=== PATIENT | female | born 1985 | race Caucasian/White ===

== ENCOUNTER 2016-10-09 11:24 | Emergency (ER) | payer BC ==
[2016-10-09] MEDS ORDERED: Dexamethasone 4 mg/ml Vial ONE (11:50)
--- NOTE | 2016-10-09 15:59 | RAD ---
The soft tissues are normal in thickness. The epiglottis appears normal and the airway is patent. No foreign bodies were seen. IMPRESSION: No significant finding. POS: HOME
== END 2016-10-09 12:24 | disposition home or self-care (01) ==
LOC: BURERS 11:24
DX: M62.838 Other muscle spasm (principal); F32.9 Major depressive disorder, single episode, unspecified; F41.9 Anxiety disorder, unspecified
CPT/HCPCS: 70360; J1100

== ENCOUNTER 2018-03-31 21:46 | Emergency (ER) | payer BC ==
[2018-03-31] MEDS ORDERED: Pantoprazole 40 MG VIAL ONE (22:28)
[2018-03-31] MEDS ORDERED: Ondansetron HCl/PF 4 MG/2 ML Vial ONE (22:28)
[2018-03-31 22:30] LABS: ALT (SGPT) 19 U/L (8-55); AST (SGOT) 13 U/L (5-34); Albumin 4.3 g/dL (3.5-5.0); Alkaline Phosphatase 43 U/L (40-150); Anion Gap 13 mmol/L (10-20); BUN (Urea Nitrogen) 13 mg/dL (7.0-18.7); Bilirubin, Total 0.6 mg/dL (0.2-1.2); Calc. Creatinine Clearance 0 mL/min (70-130); Calcium 9.4 mg/dL (7.8-10.44); Carbon Dioxide 26 mmol/L (22-29); Chloride 107 mmol/L (98-107); Estimated GFR-MDRD 78; Globulin 2.9 g/dL (2.4-3.5); Glucose 89 mg/dL (70-105); Potassium 3.9 mmol/L (3.5-5.1); Protein, Total 7.2 g/dL (6.0-8.3); Sodium 142 mmol/L (136-145)
[2018-03-31 22:32] LABS: CKMB 0.6 ng/mL (0-6.6); Troponin I Less than 0.010 ng/mL (< 0.028)
[2018-03-31 22:34] LABS: Hemoglobin 13.3 g/dL (12.0-16.0); Mean Corpuscular Hemoglobin 28.5 pg (27.0-31.0); Mean Corpuscular Volume 77.4 fL (78.0-98.0); Red Blood Cell (RBC) Count 4.67 mill/uL (4.20-5.40); White Blood Cell (WBC) Count 8.5 thou/uL (4.8-10.8)
[2018-03-31 22:39] LABS: Manual Diff?? YES; Mean Platelet Volume 6.8 fL (7.4-10.4); Platelet Count 224 thou/uL (130-400); RBC Distribution Width 11.5 % (11.5-14.5)
[2018-03-31 22:40] LABS: Lymphocytes 30 % (21-51); MDiff Complete? YES; Monocytes 10 % (0-10); Neutrophil 59 % (42-75)
[2018-03-31 22:41] LABS: PLT Morphology Comment Appears Adequate; RBC Morphology Normal
[2018-03-31 22:43] LABS: Mean Corpuscular HGB CONC 36.9 g/dL (32.0-36.0)
[2018-03-31 22:51] LABS: Bilirubin Negative (Negative); Blood, Urine Moderate (Negative); Clarity Cloudy (Clear); Glucose, Urine (Dipstick) Negative (Negative); Leukocyte Moderate (Negative); Nitrite Positive (Negative); Protein, Urine (Dipstick) 100 mg/dL (Neg-Trace)
[2018-03-31] MEDS ORDERED: Prochlorperazine 10 MG/2 ML VIAL ONE (22:53)
[2018-03-31 22:59] LABS: Bacteria/HPF 2+ HPF (None Seen); Other Microscopic Description FEW CLUE CELLS; Squamous Epithelial 0-3 HPF (0-3)
--- NOTE | 2018-03-31 23:15 | RAD ---
PORTABLE CHEST 03/31/18 An AP portable film at 2147 is compared with an 04/12/12 study. The heart is normal in size and the lungs are clear. No infiltrate or effusion was seen. There is no vascular congestion or edema. The mediastinum appears normal. IMPRESSION: No acute thoracic findings. POS: HOME
[2018-03-31] MEDS ORDERED: Sulfameth/Trimethoprim DS 800-160mg TAB ONE (23:20)
== END 2018-03-31 23:22 | disposition home or self-care (01) ==
LOC: BURERS 21:46
DX: R07.9 Chest pain, unspecified (principal); N39.0 Urinary tract infection, site not specified; F32.9 Major depressive disorder, single episode, unspecified; F41.9 Anxiety disorder, unspecified; Z79.899 Other long term (current) drug therapy
CPT/HCPCS: 71045; 80053; 81003; 81015; 82553; 83880; 84484; 85025; 85379; 87077; 87086; 87186; 93005; 96374; 96375; C9113; J0780; J2405

== ENCOUNTER 2018-05-09 13:38 | Emergency (ER) | payer BC, SELFPAY ==
[2018-05-09] MEDS ORDERED: HYDROcodone/Acetaminophen 5/325 mg Tablet ONE (13:51)
[2018-05-09] MEDS ORDERED: hydrOXYzine 25 MG TAB ONE (13:52)
[2018-05-09] MEDS ORDERED: Famotidine 20 MG TAB ONE (13:52)
== END 2018-05-09 15:49 | disposition home or self-care (01) ==
LOC: BURERS 13:38
DX: S91.155A Open bite of left lesser toe(s) without damage to nail, initial encounter (principal); F41.9 Anxiety disorder, unspecified; F32.9 Major depressive disorder, single episode, unspecified; W59.11XA Bitten by nonvenomous snake, initial encounter
CPT/HCPCS: 99283

== ENCOUNTER 2018-12-15 23:41 | Emergency (ER) | payer BC, SELFPAY ==
[2018-12-16 00:29] LABS: #Basophils 0.1 thou/uL (0.0-0.2); #Eosinphils 0.1 thou/uL (0.0-0.7); #Lymphocytes 2.4 thou/uL (1.20-3.40); #Monocytes 0.5 thou/uL (0.11-0.59); #Neutrophils 2.7 thou/uL (1.40-6.50); %Basophils 1.4 % (0.0-1.0); %Eosinophils 2.1 % (0.0-10.0); %Neutrophils 46.5 % (42.0-75.0); Hemoglobin 13.2 g/dL (12.0-16.0); Mean Corpuscular Volume 84.8 fL (78.0-98.0); Mean Platelet Volume 7.1 fL (7.4-10.4); Platelet Count 215 thou/uL (130-400); RBC Distribution Width 12.3 % (11.5-14.5); Red Blood Cell (RBC) Count 4.71 mill/uL (4.20-5.40); White Blood Cell (WBC) Count 5.7 thou/uL (4.8-10.8)
[2018-12-16 00:39] LABS: ALT (SGPT) 11 U/L (8-55); AST (SGOT) 15 U/L (5-34); Alkaline Phosphatase 41 U/L (40-150); Anion Gap 15 mmol/L (10-20); BUN (Urea Nitrogen) 18 mg/dL (7.0-18.7); Bilirubin, Total 0.5 mg/dL (0.2-1.2); Calc. Creatinine Clearance 0 mL/min (70-130); Calcium 9.4 mg/dL (7.8-10.44); Carbon Dioxide 21 mmol/L (22-29); Chloride 108 mmol/L (98-107); Estimated GFR-MDRD 74; Globulin 3.1 g/dL (2.4-3.5); Glucose 99 mg/dL (70-105); Potassium 3.7 mmol/L (3.5-5.1); Protein, Total 7.1 g/dL (6.0-8.3); Sodium 140 mmol/L (136-145)
[2018-12-16] MEDS ORDERED: predniSONE 20 MG TAB ONE (01:57)
== END 2018-12-16 02:10 | disposition home or self-care (01) ==
LOC: BURERS 23:41
DX: L23.9 Allergic contact dermatitis, unspecified cause (principal); M79.89 Other specified soft tissue disorders; F41.9 Anxiety disorder, unspecified; F32.9 Major depressive disorder, single episode, unspecified; Z79.899 Other long term (current) drug therapy
CPT/HCPCS: 80053; 85025; 99283; J7512

== ENCOUNTER 2019-01-23 06:26 | Emergency (ER) | payer BC ==
[2019-01-23 07:27] LABS: #Eosinphils 0.2 thou/uL (0.0-0.7); #Lymphocytes 2.6 thou/uL (1.20-3.40); #Monocytes 0.5 thou/uL (0.11-0.59); #Neutrophils 3.2 thou/uL (1.40-6.50); %Basophils 0.6 % (0.0-1.0); %Eosinophils 2.5 % (0.0-10.0); %Lymphocytes 40.1 % (21.0-51.0); %Monocytes 7.1 % (0.0-10.0); %Neutrophils 49.8 % (42.0-75.0); Hemoglobin 13.6 g/dL (12.0-16.0); Mean Corpuscular HGB CONC 31.3 g/dL (32.0-36.0); Mean Corpuscular Hemoglobin 27.3 pg (27.0-31.0); Mean Corpuscular Volume 87.2 fL (78.0-98.0); Mean Platelet Volume 7.4 fL (7.4-10.4); Platelet Count 232 thou/uL (130-400); RBC Distribution Width 12.8 % (11.5-14.5); Red Blood Cell (RBC) Count 4.97 mill/uL (4.20-5.40); White Blood Cell (WBC) Count 6.4 thou/uL (4.8-10.8)
[2019-01-23 07:46] LABS: CK (CPK) 119 U/L (29-168); Lipase 27 U/L (8-78)
[2019-01-23 07:46] LABS: Bilirubin Negative (Negative); Blood, Urine Negative (Negative); Clarity Clear (Clear); Glucose, Urine (Dipstick) Negative (Negative); Leukocyte Trace (Negative); Nitrite Negative (Negative); Protein, Urine (Dipstick) Negative (Neg-Trace); Specific Gravity, Urine 1.025 (1.005-1.030); Urobilinogen 0.2 mg/dL (0.2-1.0); pH, Urine 6.5 (5.0-9.0)
[2019-01-23 07:48] LABS: ALT (SGPT) 12 U/L (8-55); AST (SGOT) 15 U/L (5-34); Albumin 4.2 g/dL (3.5-5.0); Alkaline Phosphatase 49 U/L (40-150); Anion Gap 13 mmol/L (10-20); BUN (Urea Nitrogen) 19 mg/dL (7.0-18.7); Bilirubin, Total 0.4 mg/dL (0.2-1.2); Calc. Creatinine Clearance 0 mL/min (70-130); Calcium 9.6 mg/dL (7.8-10.44); Carbon Dioxide 28 mmol/L (22-29); Chloride 104 mmol/L (98-107); Estimated GFR-MDRD 79; Glucose 98 mg/dL (70-105); Potassium 3.7 mmol/L (3.5-5.1); Protein, Total 7.2 g/dL (6.0-8.3); Sodium 141 mmol/L (136-145)
[2019-01-23 07:54] LABS: Amphetamine Detected (NotDetected); Barbiturates Screen Not Detected (NotDetected); Benzodiazepine Screen Detected (NotDetected); Cocaine Metabolite Screen Not Detected (NotDetected); Medtox Control Line Valid? VALID (VALID); Methadone Not Detected (NotDetected); Methamphetamine Not Detected (NotDetected); Opiate Screen Not Detected (NotDetected); Oxycodone Screen Not Detected (NotDetected); Phencyclidine (PCP) Not Detected (NotDetected); THC/Cannabinoid Screen Not Detected (NotDetected); Tricyclic Screen Not Detected (NotDetected)
[2019-01-23] MEDS ORDERED: Ketorolac Tromethamine 30 MG/ML VIAL ONE (07:54)
[2019-01-23 08:00] LABS: Bacteria/HPF Rare-Few HPF (None Seen); RBC/HPF None Seen HPF (0-3); Squamous Epithelial 0-3 HPF (0-3); WBC/HPF 0-3 HPF (0-3)
[2019-01-23] MEDS ORDERED: Lorazepam 0.5 MG TAB ONE (08:32)
== END 2019-01-23 08:43 | disposition home or self-care (01) ==
LOC: BURERS 06:26
DX: T67.5XXA Heat exhaustion, unspecified, initial encounter (principal); F41.9 Anxiety disorder, unspecified; F32.9 Major depressive disorder, single episode, unspecified; F90.9 Attention-deficit hyperactivity disorder, unspecified type; Z79.899 Other long term (current) drug therapy
CPT/HCPCS: 80053; 80306; 81015; 82550; 83690; 84443; 85025; 85652; 93005; 96361; 96374; J1885

== ENCOUNTER 2019-05-30 10:13 | Emergency (ER) | payer BC ==
[2019-05-30] MEDS ORDERED: Midazolam HCl 2 mg/2 ml Vial ONE (10:38)
[2019-05-30] MEDS ORDERED: Morphine 10 MG/ML VIAL ONE (10:40)
[2019-05-30 10:49] LABS: #Eosinphils 0.1 thou/uL (0.0-0.7); #Monocytes 0.5 thou/uL (0.11-0.59); #Neutrophils 5.8 thou/uL (1.40-6.50); %Basophils 0.4 % (0.0-1.0); %Eosinophils 1.4 % (0.0-10.0); %Lymphocytes 23.9 % (21.0-51.0); %Monocytes 5.8 % (0.0-10.0); %Neutrophils 68.5 % (42.0-75.0); Mean Corpuscular HGB CONC 33.9 g/dL (32.0-36.0); Mean Corpuscular Hemoglobin 28.8 pg (27.0-31.0); Mean Corpuscular Volume 84.7 fL (78.0-98.0); Mean Platelet Volume 6.4 fL (7.4-10.4); Platelet Count 262 thou/uL (130-400); RBC Distribution Width 11.8 % (11.5-14.5); Red Blood Cell (RBC) Count 4.53 mill/uL (4.20-5.40); White Blood Cell (WBC) Count 8.4 thou/uL (4.8-10.8)
[2019-05-30] MEDS ORDERED: Fentanyl 100 MCG/2 ML VIAL ONE (10:52)
[2019-05-30 11:05] LABS: ALT (SGPT) 9 U/L (8-55); AST (SGOT) 10 U/L (5-34); Albumin 4.1 g/dL (3.5-5.0); Alkaline Phosphatase 52 U/L (40-110); Anion Gap 16 mmol/L (10-20); BUN (Urea Nitrogen) 15 mg/dL (7.0-18.7); Bilirubin, Total 0.8 mg/dL (0.2-1.2); Calc. Creatinine Clearance 0 mL/min (70-130); Calcium 9.8 mg/dL (7.8-10.44); Carbon Dioxide 25 mmol/L (22-29); Chloride 103 mmol/L (98-107); Estimated GFR-MDRD 83; Globulin 3.6 g/dL (2.4-3.5); Glucose 88 mg/dL (70-105); Potassium 3.5 mmol/L (3.5-5.1); Protein, Total 7.7 g/dL (6.0-8.3); Sodium 140 mmol/L (136-145)
== END 2019-05-30 12:19 | disposition home or self-care (01) ==
LOC: BURERS 10:13
DX: L02.416 Cutaneous abscess of left lower limb (principal); F41.9 Anxiety disorder, unspecified; F32.9 Major depressive disorder, single episode, unspecified; F90.9 Attention-deficit hyperactivity disorder, unspecified type; Z79.899 Other long term (current) drug therapy
CPT/HCPCS: 10060; 80053; 83605; 85025; 86140; 96374; 96375; J2250; J2270; J3010

== ENCOUNTER 2021-02-13 22:29 | Emergency (ER) | payer BC ==
[2021-02-13] MEDS ORDERED: Clindamycin 150 MG CAP ONE (23:04)
[2021-02-13] MEDS ORDERED: Ketorolac Tromethamine 60 MG/2 ML VIAL ONE (23:04)
[2021-02-13] MEDS ORDERED: Acetaminophen/Codeine 30-300mg Tablet ONE (23:04)
[2021-02-13] MEDS ORDERED: Lidocaine 1% PF 5 ML VIAL ONE (23:04)
[2021-02-13] MEDS ORDERED: Bacitracin 1 PK ONE (23:39)
== END 2021-02-13 23:58 | disposition home or self-care (01) ==
LOC: BURERS 22:29
DX: S00.86XA Insect bite (nonvenomous) of other part of head, initial encounter (principal); L02.01 Cutaneous abscess of face; F90.9 Attention-deficit hyperactivity disorder, unspecified type; Z79.899 Other long term (current) drug therapy; W57.XXXA Bitten or stung by nonvenomous insect and other nonvenomous arthropods, initial encounter
CPT/HCPCS: 10060; 96372; J1885

== ENCOUNTER 2021-05-28 05:30 | Emergency (ER) | payer BC ==
[2021-05-28 05:52] LABS: Bilirubin Negative (Negative); Blood, Urine Moderate (Negative); Glucose, Urine (Dipstick) Negative (Negative); Ketone, Urine Negative (Negative); Leukocyte Large (Negative); Nitrite Positive (Negative); Protein, Urine (Dipstick) 30 mg/dL (Neg-Trace); Urobilinogen 0.2 mg/dL (Less than 2); pH, Urine 7.5 (5.0-9.0)
[2021-05-28] MEDS ORDERED: Ondansetron PF 4 MG/2 ML Vial ONE (05:54)
[2021-05-28] MEDS ORDERED: Ketorolac Tromethamine 30 MG/ML VIAL ONE (05:54)
[2021-05-28 05:55] LABS: Clarity Cloudy (Clear)
[2021-05-28 05:56] LABS: Bacteria/HPF 4+ HPF (None Seen); Squamous Epithelial 0-3 HPF (0-3); WBC/HPF Greater Than 50 HPF (0-3)
[2021-05-28 06:10] LABS: #Lymphocytes 0.9 thou/uL (1.20-3.40); #Monocytes 0.7 thou/uL (0.11-0.59); #Neutrophils 9.1 thou/uL (1.40-6.50); %Basophils 0.3 % (0.0-1.0); %Lymphocytes 8.2 % (21.0-51.0); %Monocytes 6.1 % (0.0-10.0); %Neutrophils 85.4 % (42.0-75.0); Hemoglobin 13.7 g/dL (12.0-16.0); Mean Corpuscular HGB CONC 32.6 g/dL (32.0-36.0); Mean Corpuscular Hemoglobin 28.3 pg (27.0-31.0); Mean Platelet Volume 7.3 fL (7.4-10.4); Platelet Count 273 thou/uL (130-400); RBC Distribution Width 12.3 % (11.5-14.5); Red Blood Cell (RBC) Count 4.83 mill/uL (4.20-5.40); White Blood Cell (WBC) Count 10.7 thou/uL (4.8-10.8)
[2021-05-28 06:12] LABS: Pregnancy Test - Urine (BHCG) Negative (Negative); Pregu Control Background? CLEAR/WHITE (CLR/WHITE); Pregu Control Bar Appear? YES (CONTROL BAR)
[2021-05-28 06:19] LABS: Amphetamine Not Detected (NotDetected); Barbiturates Screen Not Detected (NotDetected); Benzodiazepine Screen Not Detected (NotDetected); Cocaine Metabolite Screen Not Detected (NotDetected); Medtox Control Line Valid? VALID (VALID); Methadone Not Detected (NotDetected); Methamphetamine Not Detected (NotDetected); Opiate Screen Not Detected (NotDetected); Oxycodone Screen Detected (NotDetected); Phencyclidine (PCP) Not Detected (NotDetected); THC/Cannabinoid Screen Not Detected (NotDetected); Tricyclic Screen Not Detected (NotDetected)
[2021-05-28 06:23] LABS: ALT (SGPT) 12 U/L (8-55); AST (SGOT) 12 U/L (5-34); Albumin 4.3 g/dL (3.5-5.0); Alkaline Phosphatase 51 U/L (40-110); Anion Gap 16 mmol/L (10-20); BUN (Urea Nitrogen) 18 mg/dL (7.0-18.7); Bilirubin, Total 0.6 mg/dL (0.2-1.2); Calc. Creatinine Clearance 0 mL/min (70-130); Carbon Dioxide 25 mmol/L (22-29); Chloride 102 mmol/L (98-107); Globulin 3.6 g/dL (2.4-3.5); Glucose 123 mg/dL (70-105); Potassium 4.1 mmol/L (3.5-5.1); Protein, Total 7.9 g/dL (6.0-8.3); Sodium 139 mmol/L (136-145)
[2021-05-28] MEDS ORDERED: Fentanyl 100 MCG/2 ML VIAL ONE (08:25)
[2021-05-28] MEDS ORDERED: Nitroglycerin 2% Ointment 1 INCH/1 GM Packet ONE (08:42)
[2021-05-29 01:38] LABS: SARS-CoV-2 PCR by NAA Not Detected (NotDetected)
== END 2021-05-28 10:10 | disposition home or self-care (01) ==
LOC: BURERS 05:30
DX: N13.2 Hydronephrosis with renal and ureteral calculous obstruction (principal); N39.0 Urinary tract infection, site not specified; I10 Essential (primary) hypertension; B96.20 Unspecified Escherichia coli [E. coli] as the cause of diseases classified elsewhere; Z20.822 Contact with and (suspected) exposure to COVID-19; Z79.899 Other long term (current) drug therapy
CPT/HCPCS: 36415; 74176; 80053; 80306; 81003; 81015; 81025; 85025; 87077; 87086; 87186; 96374; 96375; J1885; J2405; J3010; U0003; U0005

== ENCOUNTER 2021-10-19 17:33 | Emergency (ER) | payer BC ==
[2021-10-19] MEDS ORDERED: Fentanyl 100 MCG/2 ML VIAL ONE ×2 (18:08→19:07)
[2021-10-19] MEDS ORDERED: Clindamycin/D5W 600 mg/50 ml Premix Bag ONE (18:41)
[2021-10-19 19:15] LABS: #Eosinphils 0.1 thou/uL (0.0-0.7); #Lymphocytes 2.5 thou/uL (1.20-3.40); #Monocytes 0.5 thou/uL (0.11-0.59); #Neutrophils 4.1 thou/uL (1.40-6.50); %Basophils 0.7 % (0.0-1.0); %Eosinophils 1.1 % (0.0-10.0); %Lymphocytes 34.7 % (21.0-51.0); %Monocytes 6.3 % (0.0-10.0); %Neutrophils 57.2 % (42.0-75.0); Hemoglobin 12.3 g/dL (12.0-16.0); Mean Corpuscular HGB CONC 33.3 g/dL (32.0-36.0); Mean Corpuscular Hemoglobin 29.7 pg (27.0-31.0); Mean Corpuscular Volume 89.2 fL (78.0-98.0); Mean Platelet Volume 8.2 fL (7.4-10.4); Platelet Count 248 thou/uL (130-400); RBC Distribution Width 13.4 % (11.5-14.5); Red Blood Cell (RBC) Count 4.13 mill/uL (4.20-5.40); White Blood Cell (WBC) Count 7.2 thou/uL (4.8-10.8)
[2021-10-19 19:27] LABS: Anion Gap 13 mmol/L (10-20); BUN (Urea Nitrogen) 12 mg/dL (7.0-18.7); Calc. Creatinine Clearance 0 mL/min (70-130); Carbon Dioxide 25 mmol/L (22-29); Chloride 107 mmol/L (98-107); Glucose 90 mg/dL (70-105); Potassium 4.1 mmol/L (3.5-5.1); Sodium 141 mmol/L (136-145)
== END 2021-10-19 19:44 | disposition home or self-care (01) ==
LOC: BURERS 17:33
DX: L02.01 Cutaneous abscess of face (principal); M32.9 Systemic lupus erythematosus, unspecified; Z79.899 Other long term (current) drug therapy
CPT/HCPCS: 36415; 64400; 80048; 83605; 85025; 87040; 96365; 96375; J3010; J3490